=== PATIENT | male | born 1975 | race Caucasian/White ===

== ENCOUNTER 2016-10-19 18:41 | Emergency (ER) | payer MEDICAID ==
[~2016-10-19] VITALS: Ht 170.2 cm; Wt 71.5 kg
[~2016-10-19 18:41] MED LIST: ACET325T33 PO; CIPR500T4 PO; DOCU100C26 PO; FAMO-18 PO; HYDR-3498 PO; ULT50 PO
[2016-10-19 19:07] VITALS: Ht 170.2 cm; Wt 71.5 kg
--- NOTE | 2016-10-20 00:10 | ERD ---
ER Documentation Chief Complaint Date/Time DATE: 10/20/16 TIME: 00:04 Chief Complaint neck pain x 3 days denies any recent injury or trauma HPI The patient is a 41-year-old male with 3 days of bilateral neck pain, right worse than left. It started when he slept on it wrong and woke up. He denies any injury, accident, trauma, or fall. He has tried Advil at home with only moderate relief. He denies any other symptoms or recent illness. ROS All systems reviewed and are negative except as per history of present illness. Medications Home Meds Active Scripts Cyclobenzaprine Hcl* (Cyclobenzaprine Hcl*) 10 Mg Tablet, 10 MG PO TID, #9 TAB Prov:JOEL GUIDRY NP 10/20/16 Tramadol HCl (Tramadol HCl) 50 Mg Tablet, 50 MG PO Q6 Y for PAIN, #9 TAB Prov:JOEL GUIDRY, JOVANI 10/20/16 Ibuprofen* (Motrin*) 600 Mg Tab, 600 MG PO Q6H Y for PAIN AND OR ELEVATED TEMP, #30 TAB Prov:JOEL GUIDRY NP 10/20/16 Ciprofloxacin Hcl* (Ciprofloxacin Hcl*) 500 Mg Tablet, 500 MG PO BID for 21 Days , TAB Prov:MADAY CAMACHO PA-C 05/16/16 Acetaminophen* (Tylenol*) 325 Mg Tablet, 2 TAB PO Q6 Y for PAIN AND OR ELEVATED TEMP, #20 TAB Prov:INDIA HAMMER PA-C 11/29/15 Famotidine* (Pepcid*) 20 Mg Tablet, 20 MG PO BID for 4 Days, TAB Prov:INDIA HAMMER PA-C 11/29/15 Tramadol HCl (Tramadol HCl) 50 Mg Tab, 50 MG PO Q6, #20 TAB Prov:JOHANNE DALTON DO 07/16/15 Reported Medications Docusate Sodium* (Doc-Q-Lace*) 100 Mg Capsule, 100 MG PO BID Y for CONSTIPATION , CAP 07/15/15 Hydrocodone Bit-Acetaminophen* ([place]*) 5-325 Mg Tab, 1 TAB PO Q6 Y for PAIN, TAB 07/15/15 Allergies Allergies: Coded Allergies: No Known Allergy (Unverified , 05/16/16) PMhx/Soc History of Surgery: Yes (inguinal hernia surgery) Anesthesia Reaction: No Hx Neurological Disorder: No Hx Respiratory Disorders: No Hx Cardiac Disorders: No Hx Psychiatric Problems: No Hx Miscellaneous Medical Probl: No Hx Alcohol Use: No Hx Substance Use: No Hx Tobacco Use: No Smoking Status: Never smoker Physical Exam Vitals Vital Signs Date Time Temp Pulse Resp B/P Pulse Ox O2 Delivery O2 Flow Rate FiO2 10/20/16 00:28 98.7 74 18 139/82 99 Room Air 10/19/16 19:07 98.9 75 18 156/82 98 Physical Exam INITIAL VITAL SIGNS: Reviewed by me GENERAL: Alert. Well developed and well nourished. No respiratory distress HEAD: Head is normocephalic. Atraumatic. EYES: EOMI. PERRL. No scleral icterus. No conjunctival injection. ENT: External ears, nose, and mouth normal. Nasal passages patent. Moist mucous membranes. NECK: + Muscular tightness at the SCMs bilaterally consistent with muscle spasm. + SCMs are tender to palpation bilaterally. No bony tenderness to palpation. Full range of motion in flexion. Range of motion limited secondary to pain in extension, rotation, and side bending. No step-off. No external signs of trauma. Trachea midline. RESPIRATORY: No tachypnea. Clear to auscultation bilaterally. No wheezing, rales , or rhonchi. CV: Regular rate and rhythm. No murmurs, rubs, or gallops ABDOMEN: Soft, non-distended, non-tender. No guarding. No rebound. No masses. Bowel sounds normal in all quadrants. BACK: No CVA tenderness. Full ROM. EXTREMITIES: Bilateral upper extremities with full range of motion in all joints. Sensation intact to light touch to bilateral upper extremities. Strong hand grasps. Radial pulses +2 bilaterally. Strength 5/5 at shoulders, elbows, wrists, fingers. No obvious deformity. No clubbing or cyanosis. No edema. SKIN: Warm and dry. No diaphoresis. No obvious rashes or lesions. NEUROLOGIC: Alert and oriented x 3. Appropriate. Face is symmetric. Speech is normal. Moves all extremities equally. Procedures/MDM Nursing Notes Reviewed Previous Medical Records requested via [employer]. EMERGENCY DEPARTMENT COURSE / MEDICAL DECISION MAKING: The patient comes to the ED secondary to bilateral neck pain, right greater than left, 3 days. Differential diagnosis upon initial evaluation includes but is not limited to: Fracture, dislocation, nerve injury, vascular injury, muscle strain, sprain, muscle spasm, and others. Given the patient's history of present illness, no trauma or injury, no bony tenderness to palpation, no signs of neurovascular injury, benign physical exam , I have low suspicion for fracture, dislocation, nerve injury, vascular injury , or any other serious cause of neck pain. Final impression: 1. Neck pain 2. Muscle spasm Based on patient's history of present illness and physical examination the decision was made to discharge. There is no evidence of life threatening injuries or illnesses at this time. On re-examination, patient resting in no distress, stable vital signs, reports feeling safe for discharge with outpatient follow up with PMD in 1-2 days. Patient given return precautions. Prescription Ibuprofen Tramadol Flexeril Departure Diagnosis: Primary Impression: Neck pain Additional Impression: Muscle spasms of neck Condition: Stable JOEL GUIDRY NP Oct 20, 2016 00:10
[2016-10-20] MEDS ORDERED: IBUP-1542 PO (00:11)
[2016-10-20] MEDS ORDERED: ULT50 PO (00:12)
[2016-10-20] MEDS ORDERED: CYCL-319 PO (00:12)
[2016-10-20 00:28] VITALS: BP 139/82; PULSE 74; RESP 18; TEMP 98.7
== END 2016-10-20 00:33 | disposition home or self-care (01) ==
LOC: FTE 18:41
DX: M54.2 Cervicalgia (principal); M62.838 Other muscle spasm
CPT/HCPCS: 99284

== ENCOUNTER 2018-06-03 14:35 | Emergency (ER) | END 2018-06-03 17:16 | disposition home or self-care (01) ==